=== PATIENT | male | born 2000 | race Hispanic/Latino ===

== ENCOUNTER 2024-02-08 21:30 | Inpatient (IN) | payer OTHER ==
[~2024-02-08] VITALS: Ht 170.2 cm; Wt 88.5 kg
[2024-02-08] MEDS: ONDANSETRON HCL INJ 2MG/ML 2ML 2 MG/ML VIAL IV STA (22:14)
[2024-02-08] MEDS: SODIUM CHLORIDE 0.9% 1000ML 1,000 ML IV ONE (22:15)
[2024-02-08 22:19] LABS: BASOPHILS % 0.2 % (0.0-1.0); HEMATOCRIT 50.6 % (38.2-49.6); HEMOGLOBIN 18.1 g/dL (14.0-18.0); LYMPHOCYTES # (AUTO) 1.4 (1.0-3.2); MEAN CORPUSCULAR HEMOGLOBIN 29.7 pg (28-32); MEAN CORPUSCULAR HGB CONC 35.8 g/dL (31-35); MONOCYTES # (AUTO) 0.9 (0.2-0.8); NEUTROPHILS # (AUTO) 10.6 (2.1-6.9); NEUTROPHILS % 81.3 % (38.7-80.0); PLATELET COUNT 355 x10e3/uL (140-360); WHITE BLOOD COUNT 13.04 x10e3/uL (4.8-10.8)
[2024-02-08 22:33] LABS: ALBUMIN 6.2 g/dL (3.5-5.0); ALBUMIN/GLOBULIN RATIO 1.3 (0.8-2.0); ANION GAP 26.8 mmol/L (8-16); BILIRUBIN,TOTAL 1.2 mg/dL (0.2-1.2); CALCIUM 11.1 mg/dL (8.4-10.2); CREATININE, SERUM 3.83 mg/dL (0.72-1.25); POTASSIUM 3.8 mmol/L (3.5-5.1); TOTAL PROTEIN 10.8 g/dL (6.5-8.1)
[2024-02-08 22:59] LABS: TROPONIN I 0.023 ng/mL (0-0.300)
[2024-02-08] MEDS ORDERED: ONDANSETRON HCL INJ 2MG/ML 2ML 2 MG/ML VIAL IV PRN (23:45)
[2024-02-09] VITALS (10 sets, daily range): BP systolic 107–128; BP diastolic 61–79; PULSE 73–106; RESP 16–18; TEMP 97.6–99.8; O2SAT 96–100
[2024-02-09] MEDS: SODIUM CHLORIDE 0.9% 1000ML 1,000 ML IV ONE (00:26)
[2024-02-09] MEDS: SODIUM CHLORIDE 0.9% 1000ML 1,000 ML IV SCH (00:27)
[2024-02-09 05:47] LABS: BASOPHILS % 0.2 % (0.0-1.0); EOSINOPHILS % 0.2 % (0.0-6.0); HEMATOCRIT 43.1 % (38.2-49.6); LYMPHOCYTES # (AUTO) 2.9 (1.0-3.2); LYMPHOCYTES % 25.9 % (18.0-39.1); MEAN CORPUSCULAR HEMOGLOBIN 29.9 pg (28-32); MEAN CORPUSCULAR HGB CONC 34.8 g/dL (31-35); MONOCYTES # (AUTO) 1.7 (0.2-0.8); MONOCYTES % 14.8 % (4.4-11.3); NEUTROPHILS # (AUTO) 6.6 (2.1-6.9); NEUTROPHILS % 58.5 % (38.7-80.0); PLATELET COUNT 286 x10e3/uL (140-360); RED BLOOD COUNT 5.01 x10e6/uL (4.3-5.7); RED CELL DISTRIBUTION WIDTH 12.2 % (11.7-14.4); WHITE BLOOD COUNT 11.33 x10e3/uL (4.8-10.8)
[2024-02-09 06:22] LABS: ALBUMIN 4.7 g/dL (3.5-5.0); ALBUMIN/GLOBULIN RATIO 1.4 (0.8-2.0); ANION GAP 17.5 mmol/L (8-16); BILIRUBIN,TOTAL 1.2 mg/dL (0.2-1.2); CALCIUM 9.1 mg/dL (8.4-10.2); CREATININE, SERUM 1.79 mg/dL (0.72-1.25); POTASSIUM 3.5 mmol/L (3.5-5.1)
[2024-02-09 06:55] LABS: TROPONIN I 0.021 ng/mL (0-0.300)
[2024-02-09] MEDS ORDERED: ACETAMINOPHEN 325 MG TAB PO PRN (08:30)
[2024-02-09] MEDS ORDERED: FAMOTIDINE 20 MG TAB PO PRN (08:30)
[2024-02-09 17:50] LABS: TROPONIN I 0.01 ng/mL (0-0.300)
[2024-02-09] MEDS: MELATONIN 5 MG TABLET PO PRN (20:22)
[2024-02-10] VITALS: BP 116/64; PULSE 71; RESP 16; TEMP 97.9; O2SAT 96
[2024-02-10 01:37] VITALS: PULSE 106; RESP 18; TEMP 98.7
[2024-02-10 04:00] VITALS: BP 108/66; PULSE 84; RESP 16; TEMP 97.9; O2SAT 96
[2024-02-10 05:44] LABS: BASOPHILS % 0.8 % (0.0-1.0); EOSINOPHILS # (AUTO) 0.1 (0.0-0.4); EOSINOPHILS % 2.2 % (0.0-6.0); HEMATOCRIT 40.3 % (38.2-49.6); HEMOGLOBIN 13.5 g/dL (14.0-18.0); LYMPHOCYTES # (AUTO) 1.9 (1.0-3.2); LYMPHOCYTES % 38.4 % (18.0-39.1); MEAN CORPUSCULAR HEMOGLOBIN 29.5 pg (28-32); MEAN CORPUSCULAR HGB CONC 33.5 g/dL (31-35); MEAN CORPUSCULAR VOLUME 88.2 fL (81-99); MONOCYTES # (AUTO) 0.7 (0.2-0.8); MONOCYTES % 12.9 % (4.4-11.3); NEUTROPHILS # (AUTO) 2.3 (2.1-6.9); NEUTROPHILS % 45.5 % (38.7-80.0); PLATELET COUNT 210 x10e3/uL (140-360); RED BLOOD COUNT 4.57 x10e6/uL (4.3-5.7); RED CELL DISTRIBUTION WIDTH 12.3 % (11.7-14.4); WHITE BLOOD COUNT 5.05 x10e3/uL (4.8-10.8)
[2024-02-10 06:28] LABS: ALBUMIN 4.1 g/dL (3.5-5.0); ALBUMIN/GLOBULIN RATIO 1.4 (0.8-2.0); ANION GAP 11.2 mmol/L (8-16); CALCIUM 8.9 mg/dL (8.4-10.2); CREATININE, SERUM 0.84 mg/dL (0.72-1.25); POTASSIUM 4.2 mmol/L (3.5-5.1)
[2024-02-10 08:00] VITALS: BP 123/77; PULSE 82; RESP 16; TEMP 98.6; O2SAT 99
[2024-02-10 08:38] VITALS: BP 123/77; PULSE 82; RESP 16; TEMP 98.6; O2SAT 99
[2024-02-11] MEDS ORDERED: MINERAL OIL/PETROLAT/GLYCERI 6OZ BTL ONE (13:16)
[2024-02-11] MEDS ORDERED: TRYPSIN/BALSAM PERU/CASTOR OIL ONE (13:16)
== END 2024-02-10 11:00 | disposition home or self-care (01) | DRG 923 ==
LOC: ER 21:35 → ERHOLD 23:43 → MED/SURG2 02-09 01:07 → OBSVTOIN 02-09 14:30
PROVIDERS: ADMIT Family Medicine Adult Medicine; ATTEND Family Medicine Adult Medicine
DX: T67.5XXA Heat exhaustion, unspecified, initial encounter (principal); N17.9 Acute kidney failure, unspecified; E86.0 Dehydration; E83.52 Hypercalcemia; R74.8 Abnormal levels of other serum enzymes; D72.829 Elevated white blood cell count, unspecified; D75.1 Secondary polycythemia; X30.XXXA Exposure to excessive natural heat, initial encounter; Z11.52 Encounter for screening for COVID-19
CPT/HCPCS: 36415; 80053; 82550; 83690; 84484; 85025; 99284; G0378; J2405; J2470; J7030; U0002